=== PATIENT | male | born 1970 | race Caucasian/White ===

== ENCOUNTER → 2020-06-19 | Outpatient (CLI) | payer BC ==
--- NOTE | 2020-06-19 07:30 | XR ---
EXAMINATION TYPE: XR orbit detect foreign body DATE OF EXAM: 06/19/2020 COMPARISON: NONE HISTORY: History of metal work. Pre-MRI. TECHNIQUE: Orbits complete with Pruitt and Denis frontal and true lateral projection. FINDINGS: No suspicious metallic intraorbital body identified to prevent MRI study. IMPRESSION: As above.
== END | disposition home or self-care (01) ==
LOC: RADXRMAIN 07:10
PROVIDERS: ATTEND Orthopaedic Surgery Orthopaedic Surgery of the Spine
DX: Z18.10 Retained metal fragments, unspecified (principal)
CPT/HCPCS: 70030